=== PATIENT | female | born 1995 | race African-American/Black ===

== ENCOUNTER 2021-04-12 04:30 | Emergency (ER) | payer OTHER ==
[~2021-04-12] VITALS: Ht 172.7 cm; Wt 95.3 kg
[~2021-04-12 04:30] MED LIST: PROMS25 WY RECTAL; ZOFRAN ODT4 MG PO
[2021-04-12 04:32] VITALS: BP 121/75
[2021-04-12] MEDS ORDERED: PROAIR HFA8.5 GM INH (05:35)
--- NOTE | 2021-04-12 11:28 | EKG ---
[address] [place] [address] ELECTROCARDIOGRAM REPORT Name: BARBARA HINSON Room #: [facility] GUILLE Ellison#: [id number] Admission: 04/12/21 Attend Phys: Discharge: 04/12/21 Date of : [birth year] Report #: [id number] [facility] ED Test Date: 2021-04-12 Test Time: 05:24:16 Pat Name: BARBARA HINSON Department: Room: Gender: F [employer]: : 1995 Requested By: Surjit Murguia Order Number: [id number] MD: Elmo Calderon Measurements Intervals [place] Rate: 102 P: 61 DE: 169 QRS: 76 QRSD: 73 T: 1 QT: 321 QTc: 419 Interpretive Statements Sinus tachycardia No previous ECG available for comparison Electronically Signed On 04-12-2021 11:27:59 [employer] by Elmo Calderon [email or web address] <ELECTRONICALLY SIGNED> By: Elmo Calderon MD, [facility] 04/12/21 1127 0524 0524 Elmo Calderon MD, FAC /EPI
== END 2021-04-12 05:45 | disposition home or self-care (01) ==
LOC: ER 04:30
DX: J06.9 Acute upper respiratory infection, unspecified (principal); Z20.822 Contact with and (suspected) exposure to COVID-19; J45.909 Unspecified asthma, uncomplicated; Z91.02 Food additives allergy status; Z91.013 Allergy to seafood

== ENCOUNTER 2021-04-14 08:32 | Emergency (ER) | payer OTHER ==
[~2021-04-14] VITALS: Ht 172.7 cm; Wt 95.3 kg
[~2021-04-14 08:32] MED LIST changes: +PROAIR HFA8.5 GM INH
[2021-04-14] MEDS ORDERED: TESSALON PERLE100 MG PO (09:24)
[2021-04-14] MEDS ORDERED: PREDNISONE50 MG PO (09:24)
[2021-04-14] MEDS ORDERED: GUAIFEN-CODEINE10 ML PO (09:24)
[2021-04-14 10:29] VITALS: BP 118/75
== END 2021-04-14 10:29 | disposition home or self-care (01) ==
LOC: ER 08:32
DX: J06.9 Acute upper respiratory infection, unspecified (principal); J45.909 Unspecified asthma, uncomplicated; Z79.51 Long term (current) use of inhaled steroids; Z91.041 Radiographic dye allergy status; Z91.013 Allergy to seafood